=== PATIENT | female | born 1990 | race Two or more races ===

== ENCOUNTER 2017-05-25 17:44 | Observation (INO) | payer OTHER | END 2017-05-25 20:45 | disposition home or self-care (01) | DRG 781 | LOC: LDRP 17:44 | PROVIDERS: ADMIT Obstetrics & Gynecology; ATTEND Obstetrics & Gynecology | DX: O42.912 Preterm premature rupture of membranes, unspecified as to length of time between rupture and onset of labor, second trimester (principal); O26.892 Other specified pregnancy related conditions, second trimester; M54.5 Low back pain; Z3A.25 25 weeks gestation of pregnancy | CPT/HCPCS: 59025; 81002; G0378 ==